=== PATIENT | female | born 1990 | race Caucasian/White ===

== ENCOUNTER 2016-10-04 09:00 | Observation (INO) | payer MEDICAID ==
[~2016-10-04] VITALS: Ht 167.6 cm; Wt 100.2 kg
[2016-10-04] MEDS ORDERED: SODIUM CHLORIDE 0.9% 1,000 ML IV ONE (11:29)
[2016-10-04] MEDS ORDERED: MORPHINE SULFATE 4 MG/ML, 1ML IVPush PRN (11:30)
[2016-10-04] MEDS ORDERED: ONDANSETRON 2MG/ML, 2ML IVPush PRN ×2 (11:30→17:00)
[2016-10-04] MEDS ORDERED: HYDROmorphone 1 MG/ML, 1ML IVPush PRN (11:30)
[2016-10-04] MEDS ORDERED: SODIUM CHLORIDE FLUSH 10ML SYR IVF PRN (11:30)
[2016-10-04] MEDS ORDERED: ONDANSETRON 2MG/ML, 2ML IVPush ONE ×2 (11:30→12:00)
[2016-10-04] MEDS ORDERED: SODIUM CHLORIDE 0.9% 1,000ML IVBOLUS ONE ×2 (11:30)
[2016-10-04] MEDS ORDERED: HYDROmorphone 1 MG/ML, 1ML IM ONE (11:30)
[2016-10-04] MEDS ORDERED: ONDANSETRON ODT 4 MG PO ONE (11:30)
[2016-10-04] MEDS ORDERED: HYDROmorphone 1 MG/ML, 1ML ONE (11:44)
[2016-10-04] MEDS ORDERED: ONDANSETRON 2MG/ML, 2ML ONE ×2 (11:45→16:33)
[2016-10-04] MEDS ORDERED: HYDROmorphone 1 MG/ML, 1ML IV ONE (12:00)
[2016-10-04 12:10] LABS: HEMOGLOBIN 13.9 g/dL (11.7-16.4)
[2016-10-04 12:23] LABS: BLOOD UREA NITROGEN 7 mg/dL (7-18)
[2016-10-04 12:28] LABS: ASPARTATE AMINO TRANSFERASE 10 U/L (15-37)
[2016-10-04 13:29] VITALS: BP 124/67
[2016-10-04] MEDS ORDERED: morphine SULFATE 10 MG/ML, 1ML IVPush PRN (15:00)
[2016-10-04] MEDS ORDERED: ROPIvacaine/PF 0.2%, 20 ML ONE (16:10)
[2016-10-04] MEDS ORDERED: ROPivacaine/PF 0.2%, 10 ML ONE (16:10)
[2016-10-04] MEDS ORDERED: LIDOCAINE-MPF 2% ,5ML ONE (16:10)
[2016-10-04] MEDS ORDERED: MIDAZOLAM 1 MG/ML, 2ML ONE (16:13)
[2016-10-04] MEDS ORDERED: FENTANYL PF 250 MCG/5ML ONE (16:13)
[2016-10-04] MEDS ORDERED: KETOROLAC 30 MG/1 ML ONE (16:33)
[2016-10-04] MEDS ORDERED: PROPOFOL 10 MG/ML, 20ML ONE (16:33)
[2016-10-04] MEDS ORDERED: CEFAZOLIN 1,000 MG ONE (16:33)
[2016-10-04] MEDS ORDERED: DEXAMETHASONE 4 MG/ML, 1ML ONE (16:33)
[2016-10-04] MEDS ORDERED: hydrALAzine 20 MG/ML, 1ML IV PRN (17:00)
[2016-10-04] MEDS ORDERED: LABETALOL 5MG/ML, 20ML IV PRN (17:00)
[2016-10-04] MEDS ORDERED: OXYcodone 5 MG/5 ML ORAL.SOL UDC PO PRN (17:00)
[2016-10-04] MEDS ORDERED: HYDROmorphone 1 MG/ML, 1ML IV PRN (17:00)
[2016-10-04] MEDS ORDERED: METOPROLOL 1 MG/ML, 5ML IV PRN (17:00)
[2016-10-04] MEDS ORDERED: ACETAMINOPHEN 325 MG TABLET PO PRN (17:00)
[2016-10-04] MEDS ORDERED: MEPERIDINE/PF 25MG/0.5ML IVPush PRN (17:00)
[2016-10-04] MEDS ORDERED: PROMETHAZINE 25 MG/ML, 1ML IV PRN (17:00)
[2016-10-04] MEDS ORDERED: MIDAZOLAM 1 MG/ML, 5ML IV PRN (17:00)
[2016-10-04] MEDS ORDERED: ALBUTEROL SULFATE 2.5 MG/3 ML NPPB PRN (17:00)
[2016-10-04] MEDS ORDERED: EPHEDRINE 50 MG/ML, 1ML IVPush PRN (17:00)
[2016-10-04] MEDS: FENTANYL PF 100 MCG/2ML IV PRN ×2 (17:25→17:57)
[2016-10-04] MEDS ORDERED: FENTANYL PF 100 MCG/2ML ONE (17:27)
[2016-10-04] MEDS ORDERED: OXYcodone 5 MG/5 ML ORAL.SOL UDC ONE (17:28)
[2016-10-04 19:02] VITALS: BP 110/69
[2016-10-04] MEDS ORDERED: HYDROcodone/APAP 7.5-325MG/15ML UDC PO PRN (19:30)
[2016-10-04] MEDS ORDERED: morphine SULFATE 10 MG/ML, 1ML IV PRN (19:30)
[2016-10-04] MEDS ORDERED: ONDANSETRON 2MG/ML, 2ML IV PRN (19:30)
[2016-10-04] MEDS: KETOROLAC 30 MG/1 ML IV SCH (19:41)
[2016-10-04] MEDS: SODIUM CHLORIDE FLUSH 10ML SYR IVF SCH (21:00)
[2016-10-04] MEDS: DOCUSATE 100 MG CAPSULE PO SCH (21:27)
[2016-10-04 23:22] VITALS: BP 113/63
[2016-10-05] MEDS: CEFAZOLIN PMX 1GM/50ML 50 ML IVPB SCH ×2 (00:35→08:20)
[2016-10-05] MEDS: KETOROLAC 30 MG/1 ML IV SCH (03:38)
[2016-10-05 04:30] VITALS: BP 120/72
[2016-10-05] MEDS: OXYcodone/APAP 5/325MG TABLET PO PRN ×2 (05:25→09:44)
[2016-10-05] MEDS: DOCUSATE 100 MG CAPSULE PO SCH (08:19)
[2016-10-05] MEDS: SODIUM CHLORIDE FLUSH 10ML SYR IVF SCH (08:20)
[2016-10-05 08:27] VITALS: BP 145/87
[2016-10-05] MEDS ORDERED: OXYC5CAP4 PO (10:07)
[2016-10-05] MEDS ORDERED: PNEUMOCOCCAL 23 VACCINE IM-VACC ONE (10:30)
== END 2016-10-05 10:30 | disposition home or self-care (01) ==
LOC: ED 11:28 → EDIP 11:29 → INTOOBSV 11:29 → ED 11:43 → 4NOR 13:01 → DCLOUNGE 10-05 10:07
PROVIDERS: ADMIT Orthopaedic Surgery; ATTEND Orthopaedic Surgery
DX: S82.852A Displaced trimalleolar fracture of left lower leg, initial encounter for closed fracture (principal); Z23 Encounter for immunization; W01.0XXA Fall on same level from slipping, tripping and stumbling without subsequent striking against object, initial encounter; Y93.89 Activity, other specified; Y92.89 Other specified places as the place of occurrence of the external cause; Y99.8 Other external cause status
CPT/HCPCS: 27822; 36415; 71010; 73600; 73610; 76000; 80053; 84703; 85025; 90471; 90732; 93005; 96365; 96375; 97161; 99285; C1713; G0378; J0690; J1100; J1170; J1885; J2250; J2405; J2704; J2795; J3010; J3490; J7030